=== PATIENT | male | born 1980 | race Caucasian/White ===

== ENCOUNTER 2017-11-18 15:45 | Emergency (ER) | payer SELFPAY ==
[~2017-11-18] VITALS: Ht 180.3 cm; Wt 86.4 kg
[2017-11-18 15:56] VITALS: BP 139/81; TEMP 97.5
[2017-11-18] MEDS ORDERED: FLEXERIL 1010 MG/TAB PO (18:25)
[2017-11-18] MEDS ORDERED: PREDNISONE20 MG PO (18:25)
[2017-11-18 18:42] VITALS: PULSE 72
== END 2017-11-18 18:38 | disposition home or self-care (01) ==
LOC: COL.ER 15:45
DX: M75.92 Shoulder lesion, unspecified, left shoulder (principal); F17.210 Nicotine dependence, cigarettes, uncomplicated
CPT/HCPCS: J1100; J2360